=== PATIENT | female | born 1965 | race Asian ===

== ENCOUNTER → 2019-02-03 | Outpatient (CLI) | payer OTHER | END | disposition home or self-care (01) | LOC: NUC 10:52 | DX: M79.672 Pain in left foot (principal); T25.022A Burn of unspecified degree of left foot, initial encounter; T31.0 Burns involving less than 10% of body surface; X08.8XXA Exposure to other specified smoke, fire and flames, initial encounter | CPT/HCPCS: 78315; A9503 ==